=== PATIENT | male | born 1985 | race African-American/Black ===

== ENCOUNTER 2024-07-13 01:56 | Emergency (ER) | payer OTHER ==
[2024-07-13 02:19] VITALS: BMI 26.6
[2024-07-13 07:41] VITALS: BP 126/62; PULSE 98; RESP 19; TEMP 98.3
== END 2024-07-13 08:39 | disposition home or self-care (01) ==
LOC: JER 01:56
DX: F10.920 Alcohol use, unspecified with intoxication, uncomplicated (principal); Y90.8 Blood alcohol level of 240 mg/100 ml or more
CPT/HCPCS: 36415; 80307; 99283-25